=== PATIENT | female | born 1945 | race Caucasian/White ===

== ENCOUNTER 2021-02-14 00:41 | Inpatient (IN) ==
[2021-02-14] MEDS ORDERED: Naloxone 0.4 MG/ML INJ IVP PRN (03:47)
[2021-02-14] MEDS ORDERED: Ondansetron 4 MG/2 ML VIAL IVP PRN (03:47)
[2021-02-14] MEDS ORDERED: Perflutren Lipid Microsphere 1.3 ML in 0.9 % Sodium Chloride 8.7 ML IVP PRN (07:23)
[2021-02-14] MEDS ORDERED: Furosemide 40 MG/4 ML VIAL IVP SCH (09:00)
[2021-02-14] MEDS: cefTRIAXone 1,000 MG in Water for inj. (sterile) 10 ML IVP SCH (10:28)
[2021-02-14 14:21] LABS: Basophils # 0.1 K/mcL (0.0-0.2); Eosinophils # 0.2 K/mcL (0.0-0.6); Eosinophils % 1.3 %; Hematocrit 37.8 % (35.3-44.9); Hemoglobin 11.1 g/dL (11.5-15.4); Immature Granulocytes % 0.4 % (0-4); Lymphocytes # 2.3 K/mcL (0.6-4.6); Lymphocytes % 20.8 %; Mean Corpuscular HGB Conc 29.4 g/dL (31.6-35.5); Mean Corpuscular Hemoglobin 26.7 pg (28.0-33.3); Mean Corpuscular Volume 90.9 fL (83.0-100.0); Mean Platelet Volume 9.7 fL (9.4-12.4); Monocytes # 0.7 K/mcL (0.0-1.3); Monocytes % 5.8 %; Neutrophils # 7.9 K/mcL (1.6-8.9); Platelet Count 298 K/mcL (140-400); Red Blood Count 4.16 M/mcL (3.82-4.97); Red Cell Distribution Width 15.1 % (11.5-14.5); Segmented Neutrophils % 70.7 %; White Blood Count 11.1 K/mcL (4.3-11.1)
[2021-02-14 14:23] LABS: INR 1.2; Prothrombin Time 13.9 Seconds (9.4-12.1)
[2021-02-14 14:49] LABS: Alanine Aminotransferase 32 Units/L (7-52); Albumin/Globulin Ratio 0.6 (1.1-2.2); Alkaline Phosphatase 180 Units/L (34-104); Aspartate Amino Transferase 46 Units/L (13-39); BUN/Creatinine Ratio 15 (6-26); Bilirubin,Total 0.4 mg/dL (0.3-1.0); Blood Urea Nitrogen 9 mg/dL (8-23); Calcium 8.4 mg/dL (8.6-10.3); Carbon Dioxide 37 mEq/L (23-29); Chloride 100 mEq/L (98-107); Globulin 3.1 g/dL (2.4-3.5); Glucose 79 mg/dL (70-105); Magnesium 1.8 mg/dL (1.6-2.6); Osmolality,Calculated 296 (280-300); Phosphorous 3.4 mg/dL (2.7-4.5); Potassium 3.8 mEq/L (3.5-5.1); Sodium 144 mEq/L (136-145); Total Protein 5.1 g/dL (6.4-8.9); Troponin I < 0.03 ng/mL (< 0.04); eGFR For African Americans > 60 (> 60); eGFR For Non-African Americans > 60 (> 60)
[2021-02-14] MEDS ORDERED: Furosemide 20 MG/2 ML VIAL IVP SCH (17:00)
[2021-02-14] MEDS: Aspirin 81 MG TAB.CHEW PO SCH (17:20)
[2021-02-14] MEDS ORDERED: *HR* Metoprolol 5 MG/5 ML VIAL IVP ONE (17:32)
[2021-02-14] MEDS ORDERED: *HR* Heparin 5,000 UNIT/ML VIAL SQ SCH (18:00)
[2021-02-14] MEDS: Apixaban 5 MG TABLET PO SCH ×2 (19:55→21:18)
[2021-02-15 01:26] LABS: Hematocrit 34.2 % (35.3-44.9); Hemoglobin 10.3 g/dL (11.5-15.4); Mean Corpuscular HGB Conc 30.1 g/dL (31.6-35.5); Mean Corpuscular Hemoglobin 27.4 pg (28.0-33.3); Mean Platelet Volume 9.7 fL (9.4-12.4); Platelet Count 272 K/mcL (140-400); Red Blood Count 3.76 M/mcL (3.82-4.97); Red Cell Distribution Width 15.2 % (11.5-14.5); White Blood Count 8.7 K/mcL (4.3-11.1)
[2021-02-15 01:46] LABS: Estimated Average Glucose 82 mg/dl; Hemoglobin A1C 4.5 %
[2021-02-15 01:47] LABS: BUN/Creatinine Ratio 15 (6-26); Blood Urea Nitrogen 9 mg/dL (8-23); Calcium 7.9 mg/dL (8.6-10.3); Carbon Dioxide 40 mEq/L (23-29); Chloride 97 mEq/L (98-107); Chol/HDL Ratio 4.8 (0-4.9); Cholesterol 124 mg/dL (< 200); Glucose 76 mg/dL (70-105); HDL Cholesterol 26 mg/dL (40-59); LDL Cholesterol,Calculated 79 mg/dL (< 100); Magnesium 1.6 mg/dL (1.6-2.6); Osmolality,Calculated 291 (280-300); Potassium 3.5 mEq/L (3.5-5.1); Sodium 142 mEq/L (136-145); Triglycerides 95 mg/dL (< 150); eGFR For African Americans > 60 (> 60); eGFR For Non-African Americans > 60 (> 60)
[2021-02-15] MEDS ORDERED: CefTRIAXone 1,000 MG VIAL ONE (07:34)
[2021-02-15] MEDS: polyethylene glycoL 3350 17 GM POWD.PACK PO SCH ×2 (07:41→08:34)
[2021-02-15] MEDS: Aspirin 81 MG TAB.CHEW PO SCH ×2 (07:41→08:34)
[2021-02-15] MEDS: Apixaban 5 MG TABLET PO SCH ×2 (07:41→08:34)
[2021-02-15] MEDS: cefTRIAXone 1,000 MG in Water for inj. (sterile) 10 ML IVP SCH ×2 (07:42→08:35)
[2021-02-15] MEDS ORDERED: Furosemide 40 MG/4 ML VIAL IVP SCH (08:00)
[2021-02-15] MEDS: Furosemide 20 MG/2 ML VIAL IVP SCH ×2 (08:33→19:50)
[2021-02-15] MEDS ORDERED: DilTIAZem CD (24hr) 240 MG CAP.ER.24H PO SCH (09:00)
[2021-02-15 10:18] LABS: RBC,Pleural Fluid < 2000 RBC/mcL
[2021-02-15 10:21] LABS: Appearance of Pleural Fl Clear (Clear)
[2021-02-15 10:30] LABS: LDH,Pleural Fluid 54 Units/L (No Ref Range); Total Protein,Pleural Fluid < 2.0 g/dL
[2021-02-15 11:24] LABS: Basophils,Pleural Fluid 0 %; Eosinophils,Pleural Fluid 0 %
[2021-02-15] MEDS ORDERED: *HR* Metoprolol 5 MG/5 ML VIAL IVP ONE (12:37)
[2021-02-15] MEDS: *HR* Enoxaparin 100 MG/ML SYRINGE SQ SCH (12:53)
[2021-02-15] MEDS ORDERED: *HR* Metoprolol 5 MG/5 ML VIAL IVP SCH (13:00)
[2021-02-15] MEDS: Thiamine (B-1) 100 MG in 0.9 % Sodium Chloride 50 ML IVPB SCH (16:22)
[2021-02-15] MEDS: Acetaminophen 325 MG TABLET PO PRN (17:03)
[2021-02-15] MEDS: *HR* Metoprolol 5 MG/5 ML VIAL IVP SCH (17:03)
[2021-02-16] MEDS: *HR* Metoprolol 5 MG/5 ML VIAL IVP SCH ×2 (00:25→05:43)
[2021-02-16] MEDS: *HR* Enoxaparin 100 MG/ML SYRINGE SQ SCH (00:28)
[2021-02-16 00:57] LABS: Hematocrit 32.3 % (35.3-44.9); Hemoglobin 9.7 g/dL (11.5-15.4); Mean Corpuscular Hemoglobin 26.6 pg (28.0-33.3); Mean Corpuscular Volume 88.5 fL (83.0-100.0); Platelet Count 272 K/mcL (140-400); Red Blood Count 3.65 M/mcL (3.82-4.97); Red Cell Distribution Width 14.9 % (11.5-14.5); White Blood Count 8.3 K/mcL (4.3-11.1)
[2021-02-16 01:23] LABS: BUN/Creatinine Ratio 14 (6-26); Blood Urea Nitrogen 9 mg/dL (8-23); Calcium 7.7 mg/dL (8.6-10.3); Carbon Dioxide 45 mEq/L (23-29); Chloride 92 mEq/L (98-107); Glucose 129 mg/dL (70-105); Magnesium 1.9 mg/dL (1.6-2.6); Osmolality,Calculated 288 (280-300); Potassium 3.4 mEq/L (3.5-5.1); Sodium 139 mEq/L (136-145); eGFR For African Americans > 60 (> 60); eGFR For Non-African Americans > 60 (> 60)
[2021-02-16] MEDS: Acetaminophen 325 MG TABLET PO PRN (04:08)
[2021-02-16] MEDS: Thiamine (B-1) 100 MG in 0.9 % Sodium Chloride 50 ML IVPB SCH (08:37)
[2021-02-16] MEDS: cefTRIAXone 1,000 MG in Water for inj. (sterile) 10 ML IVP SCH (08:38)
[2021-02-16] MEDS: Furosemide 20 MG/2 ML VIAL IVP SCH ×2 (08:38→19:57)
[2021-02-16] MEDS: Aspirin 81 MG TAB.CHEW PO SCH (08:39)
[2021-02-16] MEDS: polyethylene glycoL 3350 17 GM POWD.PACK PO SCH (08:39)
[2021-02-16 08:44] LABS: Albumin 1.8 g/dL (3.5-5.7)
[2021-02-16 09:04] LABS: Triiodothyronine (T3) Total 0.42 ng/mL (0.87-1.78)
[2021-02-16 09:23] LABS: VBG HCO3 42 mEq/L (21-27); VBG PCO2 75 mmHg (41-51); VBG PH 7.36 pH Units (7.32-7.42); VBG PO2 75 mmHg (25-50)
[2021-02-16] MEDS ORDERED: Levothyroxine Sodium 100 MCG VIAL IVP SCH ×2 (10:45)
[2021-02-16] MEDS: Levothyroxine Sodium 100 MCG VIAL IVP SCH (11:27)
[2021-02-16] MEDS ORDERED: DilTIAZem CD (24hr) 240 MG CAP.ER.24H PO SCH (11:30)
[2021-02-16] MEDS: Nystatin POWDER 30 GM BOTTLE TP SCH (19:57)
[2021-02-16] MEDS: Apixaban 5 MG TABLET PO SCH (19:57)
[2021-02-17 01:11] LABS: BUN/Creatinine Ratio 25 (6-26); Blood Urea Nitrogen 15 mg/dL (8-23); Calcium 7.5 mg/dL (8.6-10.3); Carbon Dioxide > 45 mEq/L (23-29); Chloride 90 mEq/L (98-107); Glucose 93 mg/dL (70-105); Osmolality,Calculated 283 (280-300); Potassium 3.2 mEq/L (3.5-5.1); Sodium 136 mEq/L (136-145); eGFR For African Americans > 60 (> 60); eGFR For Non-African Americans > 60 (> 60)
[2021-02-17 01:14] LABS: VBG HCO3 43 mEq/L (21-27); VBG PCO2 72 mmHg (41-51); VBG PH 7.38 pH Units (7.32-7.42); VBG PO2 144 mmHg (25-50)
[2021-02-17] MEDS: Apixaban 5 MG TABLET PO SCH ×2 (07:25→21:57)
[2021-02-17] MEDS: Aspirin 81 MG TAB.CHEW PO SCH (07:25)
[2021-02-17] MEDS: Levothyroxine Sodium 100 MCG VIAL IVP SCH (07:26)
[2021-02-17] MEDS: Furosemide 20 MG/2 ML VIAL IVP SCH (07:26)
[2021-02-17] MEDS: cefTRIAXone 1,000 MG in Water for inj. (sterile) 10 ML IVP SCH (07:28)
[2021-02-17] MEDS: polyethylene glycoL 3350 17 GM POWD.PACK PO SCH (07:44)
[2021-02-17] MEDS: Nystatin POWDER 30 GM BOTTLE TP SCH ×2 (07:44→21:56)
[2021-02-17] MEDS: Potassium Chloride Elixir 20 MEQ/15 ML UDC PO SCH ×2 (08:41→12:32)
[2021-02-17] MEDS ORDERED: DilTIAZem CD (24hr) 120 MG CAP.ER.24H PO SCH (09:00)
[2021-02-17] MEDS: Thiamine (B-1) 100 MG in 0.9 % Sodium Chloride 50 ML IVPB SCH (09:28)
[2021-02-17] MEDS: Acetaminophen 325 MG TABLET PO PRN (17:55)
[2021-02-17] MEDS: Melatonin 3 MG TABLET PO PRN (22:20)
[2021-02-18 04:05] LABS: Hematocrit 32.7 % (35.3-44.9); Hemoglobin 10.2 g/dL (11.5-15.4); Mean Corpuscular HGB Conc 31.2 g/dL (31.6-35.5); Mean Corpuscular Hemoglobin 26.6 pg (28.0-33.3); Mean Corpuscular Volume 85.2 fL (83.0-100.0); Mean Platelet Volume 10.2 fL (9.4-12.4); Platelet Count 262 K/mcL (140-400); Red Blood Count 3.84 M/mcL (3.82-4.97); Red Cell Distribution Width 15.3 % (11.5-14.5); White Blood Count 7.6 K/mcL (4.3-11.1)
[2021-02-18 04:20] LABS: VBG HCO3 44 mEq/L (21-27); VBG PCO2 72 mmHg (41-51); VBG PH 7.39 pH Units (7.32-7.42); VBG PO2 70 mmHg (25-50)
[2021-02-18 04:26] LABS: BUN/Creatinine Ratio 32 (6-26); Blood Urea Nitrogen 19 mg/dL (8-23); Calcium 7.6 mg/dL (8.6-10.3); Carbon Dioxide 43 mEq/L (23-29); Chloride 89 mEq/L (98-107); Glucose 89 mg/dL (70-105); Osmolality,Calculated 278 (280-300); Phosphorous 1.7 mg/dL (2.7-4.5); Potassium 4.6 mEq/L (3.5-5.1); Sodium 133 mEq/L (136-145); eGFR For African Americans > 60 (> 60); eGFR For Non-African Americans > 60 (> 60)
[2021-02-18] MEDS: Levothyroxine Sodium 100 MCG VIAL IVP SCH (07:27)
[2021-02-18] MEDS: cefTRIAXone 1,000 MG in Water for inj. (sterile) 10 ML IVP SCH (07:28)
[2021-02-18] MEDS: Apixaban 5 MG TABLET PO SCH ×2 (07:29→20:32)
[2021-02-18] MEDS: Aspirin 81 MG TAB.CHEW PO SCH (07:29)
[2021-02-18] MEDS: Nystatin POWDER 30 GM BOTTLE TP SCH ×2 (07:30→20:32)
[2021-02-18] MEDS: polyethylene glycoL 3350 17 GM POWD.PACK PO SCH (07:30)
[2021-02-18] MEDS: Acetaminophen 325 MG TABLET PO PRN (07:33)
[2021-02-19 03:53] LABS: Hematocrit 32.9 % (35.3-44.9); Hemoglobin 10.4 g/dL (11.5-15.4); Mean Corpuscular HGB Conc 31.6 g/dL (31.6-35.5); Mean Corpuscular Hemoglobin 27.2 pg (28.0-33.3); Mean Corpuscular Volume 86.1 fL (83.0-100.0); Mean Platelet Volume 10.5 fL (9.4-12.4); Platelet Count 244 K/mcL (140-400); Red Blood Count 3.82 M/mcL (3.82-4.97); Red Cell Distribution Width 15.5 % (11.5-14.5); White Blood Count 8.3 K/mcL (4.3-11.1)
[2021-02-19 04:00] LABS: VBG HCO3 41 mEq/L (21-27); VBG PCO2 62 mmHg (41-51); VBG PH 7.43 pH Units (7.32-7.42); VBG PO2 187 mmHg (25-50)
[2021-02-19 04:15] LABS: BUN/Creatinine Ratio 42 (6-26); Blood Urea Nitrogen 25 mg/dL (8-23); Calcium 7.7 mg/dL (8.6-10.3); Carbon Dioxide 42 mEq/L (23-29); Chloride 90 mEq/L (98-107); Glucose 104 mg/dL (70-105); Magnesium 1.9 mg/dL (1.6-2.6); Osmolality,Calculated 281 (280-300); Phosphorous 1.9 mg/dL (2.7-4.5); Potassium 4.6 mEq/L (3.5-5.1); Sodium 133 mEq/L (136-145); eGFR For African Americans > 60 (> 60); eGFR For Non-African Americans > 60 (> 60)
[2021-02-19 04:31] LABS: Triiodothyronine (T3) Free 2.23 pg/mL (2.50-3.90)
[2021-02-19 04:36] LABS: Triiodothyronine (T3) Total 0.51 ng/mL (0.87-1.78)
[2021-02-19 04:55] LABS: Thyroid Stimulating Hormone 61.845 mcIU/mL (0.340-5.600)
[2021-02-19] MEDS: cefTRIAXone 1,000 MG in Water for inj. (sterile) 10 ML IVP SCH (08:28)
[2021-02-19] MEDS: Apixaban 5 MG TABLET PO SCH ×2 (08:29→20:41)
[2021-02-19] MEDS: Aspirin 81 MG TAB.CHEW PO SCH (08:30)
[2021-02-19] MEDS: Nystatin POWDER 30 GM BOTTLE TP SCH ×2 (08:30→20:41)
[2021-02-19] MEDS: polyethylene glycoL 3350 17 GM POWD.PACK PO SCH (08:30)
[2021-02-20 04:24] LABS: Basophils # 0.1 K/mcL (0.0-0.2); Basophils % 0.8 %; Eosinophils # 0.2 K/mcL (0.0-0.6); Eosinophils % 2.1 %; Hematocrit 30.5 % (35.3-44.9); Hemoglobin 9.5 g/dL (11.5-15.4); Immature Granulocytes % 0.7 % (0-4); Lymphocytes # 2.4 K/mcL (0.6-4.6); Mean Corpuscular HGB Conc 31.1 g/dL (31.6-35.5); Mean Corpuscular Hemoglobin 26.6 pg (28.0-33.3); Mean Corpuscular Volume 85.4 fL (83.0-100.0); Monocytes # 1.2 K/mcL (0.0-1.3); Monocytes % 12.9 %; Neutrophils # 5.5 K/mcL (1.6-8.9); Platelet Count 233 K/mcL (140-400); Red Blood Count 3.57 M/mcL (3.82-4.97); Red Cell Distribution Width 15.9 % (11.5-14.5); Segmented Neutrophils % 58.5 %; White Blood Count 9.4 K/mcL (4.3-11.1)
[2021-02-20 04:43] LABS: BUN/Creatinine Ratio 43 (6-26); Blood Urea Nitrogen 24 mg/dL (8-23); Calcium 7.7 mg/dL (8.6-10.3); Carbon Dioxide 43 mEq/L (23-29); Chloride 91 mEq/L (98-107); Glucose 117 mg/dL (70-105); Osmolality,Calculated 287 (280-300); Potassium 4.4 mEq/L (3.5-5.1); Sodium 136 mEq/L (136-145); eGFR For African Americans > 60 (> 60); eGFR For Non-African Americans > 60 (> 60)
[2021-02-20] MEDS: cefTRIAXone 1,000 MG in Water for inj. (sterile) 10 ML IVP SCH (07:51)
[2021-02-20] MEDS: Apixaban 5 MG TABLET PO SCH ×2 (07:51→20:10)
[2021-02-20] MEDS: Metoprolol XL (24 HR) Succ 25 MG TAB.ER.24H PO SCH (07:51)
[2021-02-20] MEDS: polyethylene glycoL 3350 17 GM POWD.PACK PO SCH (07:52)
[2021-02-20] MEDS: Nystatin POWDER 30 GM BOTTLE TP SCH ×2 (07:52→20:10)
[2021-02-20] MEDS: Aspirin 81 MG TAB.CHEW PO SCH (07:52)
[2021-02-20] MEDS ORDERED: Azithromycin 250 MG TABLET PO ONE (12:02)
[2021-02-20] MEDS: Acetaminophen 325 MG TABLET PO PRN ×2 (12:57→20:10)
[2021-02-20] MEDS: Thiamine (B-1) 100 MG TABLET PO SCH (16:58)
[2021-02-20] MEDS: Melatonin 3 MG TABLET PO PRN (20:10)
[2021-02-21 05:39] LABS: Basophils # 0.1 K/mcL (0.0-0.2); Eosinophils # 0.2 K/mcL (0.0-0.6); Eosinophils % 2.1 %; Hematocrit 28.4 % (35.3-44.9); Hemoglobin 8.9 g/dL (11.5-15.4); Immature Granulocytes % 0.8 % (0-4); Lymphocytes % 25.9 %; Mean Corpuscular HGB Conc 31.3 g/dL (31.6-35.5); Mean Corpuscular Volume 86.1 fL (83.0-100.0); Monocytes # 0.9 K/mcL (0.0-1.3); Monocytes % 11.7 %; Neutrophils # 4.5 K/mcL (1.6-8.9); Platelet Count 213 K/mcL (140-400); Red Cell Distribution Width 16.1 % (11.5-14.5); Segmented Neutrophils % 58.5 %; White Blood Count 7.7 K/mcL (4.3-11.1)
[2021-02-21 06:06] LABS: BUN/Creatinine Ratio 42 (6-26); Blood Urea Nitrogen 24 mg/dL (8-23); Calcium 7.9 mg/dL (8.6-10.3); Carbon Dioxide 43 mEq/L (23-29); Chloride 91 mEq/L (98-107); Glucose 120 mg/dL (70-105); Osmolality,Calculated 285 (280-300); Potassium 4.5 mEq/L (3.5-5.1); Sodium 135 mEq/L (136-145); eGFR For African Americans > 60 (> 60); eGFR For Non-African Americans > 60 (> 60)
[2021-02-21] MEDS: Thiamine (B-1) 100 MG TABLET PO SCH (09:22)
[2021-02-21] MEDS: Apixaban 5 MG TABLET PO SCH ×2 (09:22→20:25)
[2021-02-21] MEDS: polyethylene glycoL 3350 17 GM POWD.PACK PO SCH (09:23)
[2021-02-21] MEDS: Azithromycin 250 MG TABLET PO SCH (09:23)
[2021-02-21] MEDS: Acetaminophen 325 MG TABLET PO PRN (09:23)
[2021-02-21] MEDS: Metoprolol XL (24 HR) Succ 25 MG TAB.ER.24H PO SCH (09:23)
[2021-02-21] MEDS: Nystatin POWDER 30 GM BOTTLE TP SCH ×2 (09:24→20:26)
[2021-02-21] MEDS: Aspirin 81 MG TAB.CHEW PO SCH (09:26)
[2021-02-21] MEDS: Melatonin 3 MG TABLET PO PRN (20:25)
[2021-02-22 00:48] LABS: Basophils # 0.1 K/mcL (0.0-0.2); Basophils % 1.1 %; Eosinophils # 0.2 K/mcL (0.0-0.6); Eosinophils % 2.9 %; Hematocrit 29.1 % (35.3-44.9); Immature Granulocytes % 0.8 % (0-4); Lymphocytes # 2.1 K/mcL (0.6-4.6); Lymphocytes % 25.5 %; Mean Corpuscular HGB Conc 30.9 g/dL (31.6-35.5); Mean Corpuscular Hemoglobin 26.9 pg (28.0-33.3); Mean Corpuscular Volume 86.9 fL (83.0-100.0); Mean Platelet Volume 11.2 fL (9.4-12.4); Monocytes % 12.4 %; Neutrophils # 4.8 K/mcL (1.6-8.9); Platelet Count 249 K/mcL (140-400); Red Blood Count 3.35 M/mcL (3.82-4.97); Red Cell Distribution Width 16.4 % (11.5-14.5); Segmented Neutrophils % 57.3 %; White Blood Count 8.3 K/mcL (4.3-11.1)
[2021-02-22 01:26] LABS: BUN/Creatinine Ratio 38 (6-26); Blood Urea Nitrogen 21 mg/dL (8-23); Carbon Dioxide 43 mEq/L (23-29); Chloride 91 mEq/L (98-107); Glucose 102 mg/dL (70-105); Osmolality,Calculated 283 (280-300); Potassium 4.4 mEq/L (3.5-5.1); Sodium 135 mEq/L (136-145); eGFR For African Americans > 60 (> 60); eGFR For Non-African Americans > 60 (> 60)
[2021-02-22] MEDS: Metoprolol XL (24 HR) Succ 25 MG TAB.ER.24H PO SCH (08:36)
[2021-02-22] MEDS: Thiamine (B-1) 100 MG TABLET PO SCH (08:36)
[2021-02-22] MEDS: Aspirin 81 MG TAB.CHEW PO SCH (08:37)
[2021-02-22] MEDS: Azithromycin 250 MG TABLET PO SCH (08:38)
[2021-02-22] MEDS: polyethylene glycoL 3350 17 GM POWD.PACK PO SCH (08:39)
[2021-02-22] MEDS: Acetaminophen 325 MG TABLET PO PRN (08:45)
[2021-02-22] MEDS: Nystatin POWDER 30 GM BOTTLE TP SCH ×2 (08:49→21:24)
[2021-02-22] MEDS: Apixaban 5 MG TABLET PO SCH ×2 (17:13→21:23)
[2021-02-22] MEDS: Melatonin 3 MG TABLET PO PRN (21:23)
[2021-02-23] MEDS: Artificial Tears SOLN 15 ML BOTTLE BOTH EYES SCH ×2 (06:05→20:03)
[2021-02-23] MEDS: Aspirin 81 MG TAB.CHEW PO SCH (08:48)
[2021-02-23] MEDS: Thiamine (B-1) 100 MG TABLET PO SCH (08:48)
[2021-02-23] MEDS: Apixaban 5 MG TABLET PO SCH ×2 (08:48→20:03)
[2021-02-23] MEDS: Metoprolol XL (24 HR) Succ 25 MG TAB.ER.24H PO SCH (08:48)
[2021-02-23] MEDS: polyethylene glycoL 3350 17 GM POWD.PACK PO SCH (08:49)
[2021-02-23] MEDS: Azithromycin 250 MG TABLET PO SCH (08:49)
[2021-02-23] MEDS: Nystatin POWDER 30 GM BOTTLE TP SCH ×2 (08:50→20:04)
[2021-02-23] MEDS: Acetaminophen 325 MG TABLET PO PRN (20:03)
[2021-02-23] MEDS: Melatonin 3 MG TABLET PO PRN (20:03)
[2021-02-24 06:22] LABS: Basophils # 0.1 K/mcL (0.0-0.2); Eosinophils # 0.3 K/mcL (0.0-0.6); Eosinophils % 3.8 %; Hematocrit 27.9 % (35.3-44.9); Hemoglobin 8.8 g/dL (11.5-15.4); Immature Granulocytes % 0.7 % (0-4); Lymphocytes # 2.3 K/mcL (0.6-4.6); Lymphocytes % 33.9 %; Mean Corpuscular HGB Conc 31.5 g/dL (31.6-35.5); Mean Corpuscular Volume 85.6 fL (83.0-100.0); Mean Platelet Volume 11.2 fL (9.4-12.4); Monocytes # 0.9 K/mcL (0.0-1.3); Monocytes % 12.7 %; Neutrophils # 3.3 K/mcL (1.6-8.9); Platelet Count 286 K/mcL (140-400); Red Blood Count 3.26 M/mcL (3.82-4.97); Red Cell Distribution Width 16.7 % (11.5-14.5); Segmented Neutrophils % 47.9 %; White Blood Count 6.9 K/mcL (4.3-11.1)
[2021-02-24 06:47] LABS: BUN/Creatinine Ratio 54 (6-26); Blood Urea Nitrogen 29 mg/dL (8-23); Calcium 8.4 mg/dL (8.6-10.3); Carbon Dioxide 42 mEq/L (23-29); Chloride 91 mEq/L (98-107); Glucose 88 mg/dL (70-105); Osmolality,Calculated 283 (280-300); Potassium 4.1 mEq/L (3.5-5.1); Sodium 134 mEq/L (136-145); eGFR For African Americans > 60 (> 60); eGFR For Non-African Americans > 60 (> 60)
[2021-02-24 06:58] LABS: Triiodothyronine (T3) Free 2.21 pg/mL (2.50-3.90)
[2021-02-24 07:02] LABS: Triiodothyronine (T3) Total 0.37 ng/mL (0.87-1.78)
[2021-02-24 07:23] LABS: Thyroid Stimulating Hormone 58.536 mcIU/mL (0.340-5.600)
[2021-02-24] MEDS: Apixaban 5 MG TABLET PO SCH (08:07)
[2021-02-24] MEDS: Aspirin 81 MG TAB.CHEW PO SCH (08:07)
[2021-02-24] MEDS: Thiamine (B-1) 100 MG TABLET PO SCH (08:07)
[2021-02-24] MEDS: Metoprolol XL (24 HR) Succ 25 MG TAB.ER.24H PO SCH (08:08)
[2021-02-24] MEDS: polyethylene glycoL 3350 17 GM POWD.PACK PO SCH (08:08)
[2021-02-24] MEDS: Azithromycin 250 MG TABLET PO SCH (08:08)
[2021-02-24] MEDS: Acetaminophen 325 MG TABLET PO PRN (08:08)
[2021-02-24] MEDS: Nystatin POWDER 30 GM BOTTLE TP SCH (08:08)
[2021-02-24] MEDS ORDERED: *HR* LORazepam 1 MG TABLET PO ONE (13:06)
[2021-02-24 14:44] VITALS: BP 106/52
== END 2021-02-24 13:51 | disposition hospice, home (50) | DRG 689 ==
LOC: 2NENU → SUATTDRO 02:46
PROVIDERS: ADMIT Family Medicine; ATTEND Family Medicine